=== PATIENT | male | born 1980 | race Hispanic/Latino ===

== ENCOUNTER → 2023-04-03 14:03 | Outpatient (CLI) | payer OTHER, SELFPAY ==
[2023-04-03 15:27] LABS: Prostate Specific Antigen Scrn 0.404 ng/mL (0.1-4.0)
[2023-04-03 16:47] LABS: HIV 1 & 2 Ab/Ag 4th Gen Combo NEGATIVE (NEGATIVE)
[2023-04-03 19:25] LABS: Appearance Urine UA CLEAR; Bilirubin Urine UA NEGATIVE (NEGATIVE); Color Urine UA YELLOW; Glucose Urine UA NEGATIVE (Negative); Ketones Urine UA NEGATIVE (NEGATIVE); Leukocyte Esterase Urine UA NEGATIVE (NEGATIVE); Nitrite Urine UA NEGATIVE (Negative); Occult Blood Urine UA TRACE-INTACT (Negative); Protein Urine UA NEGATIVE (Negative); Specific Gravity Urine UA <=1.005 (1.000-1.035); Urobilinogen Urine UA 0.2 E.U./dL (0.2); pH Urine UA 6.5 (4.5-8.0)
[2023-04-03 19:37] LABS: Bacteria Urine Occasional (0-1); Culture Indicated Urine Cult Not Indicated; RBC Urine None Seen (0-5/HPF); Squamous Epithelial Cell Urine None Seen (0-5/HPF); WBC Urine None Seen (0-5/HPF)
[2023-04-04 02:57] LABS: HSV 2 IGG AB < 0.91 index (0.00-0.90)
[2023-04-04 08:54] LABS: RPR Screen Non Reactive (Non Reactive)
== END ==
PROVIDERS: PCP Pediatrics; Visit Provider Pediatrics
DX: Z20.2 Contact with and (suspected) exposure to infections with a predominantly sexual mode of transmission (principal); Z87.898 Personal history of other specified conditions; N41.0 Acute prostatitis; Z12.5 Encounter for screening for malignant neoplasm of prostate
CPT/HCPCS: 81001; 86592; 86695; 86696; 87389; G0103

== ENCOUNTER → 2023-09-01 11:13 | Outpatient (CLI) | payer OTHER, SELFPAY ==
--- NOTE | 2023-09-01 11:16 | DI.RAD.S_ITS ---
PROCEDURE: XR KNEE RT 3V INDICATIONS: R medial knee pn w/flex, recently started running no injury TECHNIQUE: 3 views of the knee were acquired. COMPARISON: None. 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 No acute fractures or dislocations. No suspicious bony lesions. Soft tissues: Small suprapatellar joint effusion. No suspicious soft tissue calcifications. IMPRESSION: No acute bony abnormality or significant effusion. Small nonspecific joint effusion. Dictated by: Vanita Tenorio MD, PhD on 09/01/2023 at 11:37 Approved by: Vanita Tenorio MD, PhD on 09/01/2023 at 11:37
== END ==
PROVIDERS: Referring Provider Student in an Organized Health Care Education/Training Program; Visit Provider Student in an Organized Health Care Education/Training Program
DX: M25.561 Pain in right knee (principal); M25.461 Effusion, right knee
CPT/HCPCS: 73562

== ENCOUNTER → 2024-06-11 16:45 | Outpatient (CLI) | payer OTHER, SELFPAY ==
--- NOTE | 2024-06-11 16:46 | DI.MRI.S_ITS ---
PROCEDURE: MR KNEE RT WO CON INDICATIONS: worsening radiating pain, injury, weaknes TECHNIQUE: Noncontrast sagittal PD fast spin echo and T2 fast spin echo with fat saturation, sagittal 3-D FLASH with fat saturation; coronal T1 spin echo and PD fast spin echo with fat saturation, and axial PD fast spin echo with fat saturation through the knee. COMPARISON: None. FINDINGS: Image quality: Excellent. Bones: Mild subchondral cyst formation is present in the superolateral moiety of a bipartite patella (10/6), an anatomic variant. The bone marrow signal is otherwise normal. There is no acute fracture or dislocation. Joints: There is a small knee joint effusion. There is no significant knee osteoarthritis. Garrido's cyst: Trace Garrido's cyst Menisci: There is a complex tear of the body and posterior horn of the medial meniscus with a primary horizontal component extending towards the inferior articular surface and extending towards the posterior root attachment (18-25). There is no significant medial meniscal body extrusion. The lateral meniscus is normal. The posterior root attachments are normal. Cruciate ligaments: The anterior cruciate ligament is normal. The posterior cruciate ligament is normal. Collateral ligaments: There is mild thickening of the medial collateral ligament complex with periligamentous edema (/19). The lateral collateral ligament complex is normal. Popliteus Muscle/Tendon: The popliteus muscle and tendon are normal. Extensor mechanism: The quadriceps tendon is normal. The patellar tendon is normal. The medial and lateral patellar retinacular attachments are normal. Articular cartilage: Partial thickness chondral fissuring is present at the medial patellar facet (5/9). Mild surface fibrillation and partial thickness chondral fissuring is present at the synchondrosis between the moieties of the bipartite patella (5/8; 10/7). Other: No other acute findings. IMPRESSION: 1. Complex tear involving the body and posterior horn of the medial meniscus, with an associated small joint effusion. 2. 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 3. Mild MCL sprain. 4. Mild articular cartilage defects at the medial patellar facet and patellar moieties. Dictated by: Jayden Briceno M.D. on 06/12/2024 at 11:40 Approved by: Jayden Briceno M.D. on 06/12/2024 at 11:52
== END ==
LOC: MRI 16:46
PROVIDERS: PCP Family Medicine; Referring Provider Family Medicine; Visit Provider Family Medicine
DX: S83.231A Complex tear of medial meniscus, current injury, right knee, initial encounter (principal); S83.411A Sprain of medial collateral ligament of right knee, initial encounter; M22.8X1 Other disorders of patella, right knee; M25.561 Pain in right knee; R29.898 Other symptoms and signs involving the musculoskeletal system; M25.461 Effusion, right knee; W18.30XA Fall on same level, unspecified, initial encounter
CPT/HCPCS: 73721